=== PATIENT | female | born 1990 | race Caucasian/White ===

== ENCOUNTER 2019-01-10 09:11 | Inpatient (IN) | payer OTHER ==
[~2019-01-10] VITALS: Ht 157.5 cm; Wt 87.1 kg
[2019-01-10] MEDS ORDERED: LACTATED RINGER'S 1000 ML IV STA (09:55)
[2019-01-10 11:29] LABS: HEMATOCRIT 38.2 % (36.0-47.0); HEMOGLOBIN 11.9 g/dl (12.0-15.5); MEAN CORPUSCULAR HEMOGLOBIN 27.4 pg (27.0-33.0); MEAN CORPUSCULAR HGB CONC 31.2 g/dl (32.0-36.5); PLATELET COUNT, AUTOMATED 200 10^3/uL (150-450); RED BLOOD COUNT 4.34 10^6/uL (4.00-5.40); WHITE BLOOD COUNT 6.8 10^3/uL (4.0-10.0)
[2019-01-10] MEDS ORDERED: OXYTOCIN DRIP 30 UNITS in IV 1 EA IV SCH (12:15)
--- NOTE | 2019-01-10 13:48 | HPEPDOC ---
Obstetrical History & Physical General Date of Admission Jan 10, 2019 at 09:11 History of Present Illness Marylou is a 28yo with SIUP at 41w0d by lmp c/w 9wk u/s presenting today for IOL secondary to LTG. History is significant for prior section in March 2017 for arrest of dilation when undergoing IOL at 41wk. She strongly desires TOLAC and was counseled in the office regarding benefits/risks/alternatives. She confirms again today strong desire for TOLAC. Has occasional ctx, nothing strong or persistent. No LOF. Had a bit of vaginal spotting just this morning. Good movement. Chief Complaint: Induction of labor Information Provided By: Patient Care Care: Good Care Dating Final EDC: Jan 03, 2019 Final EDC by: LMP, 1st trimester (US) Antepartum Course Diagnos(e)s History of prior section, starting BMI 30 with 30 pound weight gain. Height (inches): 62 Pre- weight (lbs.): 164 Admission Weight (lbs.): 194 Change in Weight (lbs.): 30 Past Medical History Past Obstetrical History : Past Obstetrical History: Multigravida (03/2017 PLTCS for arrest of dilation when undergoing IOL at 41w1d, 8lb9oz) Complications: No FORESTRY WORKERS History: No pertinent history Past Medical History Medical History History of benign thyroid nodule, starting BMI 30 Surgical History: section, Other (knee surgery) Family History Significant Family History: No pertinent family hx Social History Marital Status: Family situation: Spouse/partner home Psychosocial History: No pertinent psych hx * Smoker: non-smoker Alcohol: Denies Drugs: denies Imunizations Tdap status: current Influenza Status: current Allergies Coded Allergies: Sulfa (Sulfonamide Antibiotics) (Verified Allergy, Mild, RASH, 01/10/19) ibuprofen (Verified Allergy, Mild, FACE SWELLING, 01/10/19) Physical Examination Physical Examination GENERAL: Alert and oriented times three. ABDOMEN: Gravid and non-tender to touch. FETUS: Is vertex (VTX) by sterile vaginal examination (SVE) EXTREMITIES: No edema of BLE Laboratory Data 24H LABS Laboratory Tests 2 01/10/19 10:49: Nucleated Red Blood Cells % (auto) 0.0, Syphilis Serology NONREACTIVE, Hepatitis B Surface Antigen (Rapid) NEGATIVEL CBC/BMP Laboratory Tests 01/10/19 10:49 Pertinent Laboratoy Data Blood Type: B+ RBC Antibody Screen: Negative HIV: Negative Hepatitis B: Negative Hepatitis C: Unknown Rapid Plasma Reagin: Nonreactive Rubella: Immune Varicella: Immune Chlamydia/Gonorrhea: Negative Group B Streptococcus: Negative Glucose Tolerance Test: 113 Anatomy Ultrasound Ultrasound Date: Jan 12, 2019 Placenta Location: Posterior Normal Anatomy: Yes Placenta Previa: No Steroid Therapy Steroid Therapy: No Vaginal Examination Dilation: 1cm Effacement: 50% Station: -3 Cervical Consistency: Medium Cervical Position: Middle Presentation: Cephalic presentation Assessment Heart Rate (FHR): 130 Variability: Moderate Accelerations: Positive Decelerations: None Tocometer Frequency: irregular, greater than 10 min/apart Strength: palpated as mild Assessment/Plan Assessment Marylou is a 28yo with SIUP at 41w0d by lmp c/w 9wk u/s presenting today for IOL secondary to LTG. History is significant for prior section in March 2017 for arrest of dilation when undergoing IOL at 41wk. She strongly desires TOLAC and was counseled in the office regarding benefits/r isks/alternatives. She confirms again today strong desire for TOLAC. Vitals wnl, benign exam. SCE /high. Cat I FHRT, rare ctx. Cephalic by SCE. GBS negative. Portillo cervical bulb placed and filled with 40cc NS. Plan Admit and orient. Hospice Consultant and consent. Diet: clear liquids Group B Streptococcus (GBS) negative Labs and intravenous (IV) per unit protocol. Counseled on portillo bulb, Pitocin and induction of labor (IOL). Will titrate pitocin per protocol up to 6mu until portillo bulb falls out, then continue to titrate up per protocol Lactated Ringers (LR): Bolus 1000 mL, then at 125 mL/hr. Candidate for epidural as desired Safe to proceed MD Daniel Hurst Katrina D MD Jan 10, 2019 13:48
[2019-01-10] MEDS ORDERED: PNV1TAB6 PO (15:27)
[2019-01-10] MEDS ORDERED: TUMS500C PO (15:27)
[2019-01-10 19:30] VITALS: BP 120/77
[2019-01-10 20:22] VITALS: BP 115/62
[2019-01-10 21:33] VITALS: BP 132/69
[2019-01-10 22:33] VITALS: BP 130/80
[2019-01-10] MEDS ORDERED: PROMETHAZINE INJ 25 MG/ML VIAL (J2550) IV ONE (22:45)
[2019-01-10] MEDS ORDERED: BUTORPHANOL 2 MG/ML INJ (J0595) IV PRN (22:45)
[2019-01-10 23:15] VITALS: BP 120/74
[2019-01-10 23:46] VITALS: BP 82/44
--- NOTE | 2019-01-10 23:50 | IPNPDOC ---
Text Note Date of Service The patient was seen on 01/10/19. NOTE Intrapartum Note Patient doing well, portillo bulb fell out at 2230. Pitocin is at 6mu and she requested IV pain medication, so given 2mg IV stadol with 25mg IV phenergan with good pain relief. Vitals wnl, afebrile Cat I-II FHRT with +accels, -decels, min-mod abhay [place]: ctx q2-5min Plan for SCE in an hour or so. Safe to proceed Dr. Sveta Sanchez MD VS,Kirsten, I+O VSKirsten, I+O Laboratory Tests 01/10/19 10:49 Vital Signs Date Time Temp Pulse Resp B/P (MAP) Pulse Ox O2 Delivery O2 Flow Rate FiO2 01/10/19 23:13 18 Sveta Sanchez MD Jan 10, 2019 23:50
[2019-01-11] VITALS (30 sets, daily range): BP systolic 84–135; BP diastolic 46–93
[2019-01-11] MEDS: LR 1,000 ML IV SCH ×4 (01:35→22:01)
[2019-01-11] MEDS ORDERED: FENTANYL 2MCG/ML ROPIVACAINE 0.2% IN 0.9% NACL 100ML IVBAG As Ordered ONE (04:26)
[2019-01-11] MEDS ORDERED: FENTANYL/ROPIVACAINE/NACL BAG 100 ML EPIDURAL SCH (07:00)
[2019-01-11] MEDS ORDERED: EPIDURAL/PCA KEYS XX PRN (07:00)
[2019-01-11] MEDS ORDERED: ONDANSETRON 4MG/2ML VIAL (J2405) IV PRN ×3 (07:00→13:30)
[2019-01-11] MEDS ORDERED: NALOXONE INJ 0.4 MG/1 ML VIAL (J2310) IV PRN ×3 (07:00→13:04)
[2019-01-11] MEDS ORDERED: ePHEDrine SULFATE 25 MG/5 ML(5MG/ML) SYRINGE IV PRN (07:00)
[2019-01-11] MEDS ORDERED: REFRIGERATOR IV KEYS XX PRN (07:00)
[2019-01-11] MEDS ORDERED: EPIDURAL COMMENT XX SCH (07:00)
[2019-01-11] MEDS ORDERED: diphenhydrAMINE INJ 50MG/ML VIAL (J1200) IV PRN ×2 (07:00→13:04)
--- NOTE | 2019-01-11 09:38 | IPNPDOC ---
Text Note Date of Service The patient was seen on 01/11/19. NOTE Accepting care of Ms. Knutson this morning. She's a 28 yo at 41+1 weeks gestation who was admitted for an IOL for late term . Her history is notable for a prior c section for arrest of dilation at 7cm after undergoing an IOL. She strongly desired a TOLAC for this delivery. Her induction process was started with a portillo bulb and low dose pitocin. Her portillo bulb was expelled spontaneously late last night. She was checked at 0545 and was found to be 6/90/-2. She SROMed, clear fluid, at ~0715 this AM. She is comfortable with an epidural in place. FHR has been Cat I with moderate variability and early decels. Pitocin is currently at 7mU. Chaperoned by L&D RN Cervix: 6/90/-2. Forebag of clear fluid ruptured during exam. No real change since last exam. Will continue to titrate pitocin to effect. Patient still strongly desires TOLAC. Will recheck in 2-4 hours or sooner as needed. All patient questions answered. Josh Smith DO VSKirsten, I+O VS, Kirsten, I+O Laboratory Tests 01/10/19 10:49 Vital Signs Date Time Temp Pulse Resp B/P (MAP) Pulse Ox O2 Delivery O2 Flow Rate FiO2 01/11/19 08:45 84 18 102/61 (75) 01/11/19 07:44 98.0 I&O- Last 24 Hours up to 6 AM 01/11/19 05:59 Intake Total 927 ml Output Total 2200 ml Balance -1273 ml JOSH SMITH DO Jan 11, 2019 09:38
[2019-01-11] MEDS ORDERED: BICITRA 30ML SOLN UDC As Ordered ONE (11:21)
[2019-01-11] MEDS ORDERED: AZITHROMYCIN INJ 500MG VIAL (J0456) As Ordered ONE (11:22)
[2019-01-11] MEDS ORDERED: ceFAZolin 2 GM/D5W 50 ML IV BAG (J0690 PER 500MG) As Ordered ONE (11:22)
[2019-01-11] MEDS ORDERED: ceFAZolin SOD 2 GM in IV 1 EA IV ONE (11:30)
[2019-01-11] MEDS ORDERED: BICITRA 30ML SOLN UDC PO ONE (11:30)
[2019-01-11] MEDS ORDERED: AZITHROMYCIN INJ 500 MG, VIAL MATE ADAPTER 1 EACH in D5W 250 ML IV ONE (11:30)
[2019-01-11] MEDS ORDERED: OXYTOCIN INJ 10 UNITS/ML VIAL (J2590) As Ordered ONE (11:35)
[2019-01-11] MEDS ORDERED: MORPHINE PRES-FREE INJ 10 MG/10 ML VIAL (J2274) As Ordered ONE (11:36)
[2019-01-11] MEDS ORDERED: LIDOCAINE 2% W/EPIN INJ 20ML **PRES FREE As Ordered ONE (11:36)
--- NOTE | 2019-01-11 11:42 | IPNPDOC ---
Text Note Date of Service The patient was seen on 01/11/19. NOTE Presented to room for assessment. Ms. Knutson reports feeling more pressure. Cervix: unchanged at 6/90/-2. head still quite high. FHR tracing: Cat II with sporadic variable decels, but moderate variability and overall reassuring. I discussed my concern with Ms. 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 However, because status is overall reassuring, I offered her to labor another 2 hours for repeat examination to assess for progress in dilation and descent. I also offered her section now. After discussion with her , Ms. Knutson desires to proceed with section now. Will proceed with section now with indication being arrest of dilation. We discussed all risks of surgery to include, but not limited to, bleeding requiring blood transfusion, risk of infection, risk of injury to bowel, bladder, or other structures which could require additional surgery, risk of injury to baby, and even risk of and/or maternal . Ms. Knutson verbalized understanding of these risks and elected to proceed. Ancef and azithromycin for surgical prophylaxis. Will move to the OR when team ready. All patient and questions answered to apparent satisfaction. Josh Villalba DO VS,Kirsten, I+O VS, Kirsten, I+O Vital Signs Date Time Temp Pulse Resp B/P (MAP) Pulse Ox O2 Delivery O2 Flow Rate FiO2 01/11/19 10:53 99.1 89 108/52 (70) 01/11/19 10:22 18 I&O- Last 24 Hours up to 6 AM 01/11/19 06:00 Intake Total 927 ml Output Total 2200 ml Balance -1273 ml JOSH VILLALBA DO Jan 11, 2019 11:42
[2019-01-11] MEDS ORDERED: PHENYLephrine HCL 500 MCG/5 ML (100MCG/ML) SYRINGE (J2370) As Ordered ONE (12:17)
[2019-01-11] MEDS ORDERED: ONDANSETRON 4MG/2ML VIAL (J2405) As Ordered ONE (12:17)
[2019-01-11] MEDS ORDERED: MEPERIDINE 50 MG/ML 1ML VIAL (J2175) As Ordered ONE (12:21)
[2019-01-11] MEDS ORDERED: NALBUPHINE HCL 10 MG/ML AMP (J2300) IV PRN (13:04)
[2019-01-11] MEDS ORDERED: METOCLOPRAMIDE INJ 10MG/2ML VIAL (J2765) IV PRN ×2 (13:04→13:30)
[2019-01-11] MEDS ORDERED: OXYTOCIN DRIP 30 UNITS in IV 1 EA IV SCH (13:07)
[2019-01-11] MEDS ORDERED: PROMETHAZINE 25 MG TAB PO PRN (13:15)
[2019-01-11] MEDS ORDERED: oxyCODONE 5MG TAB PO PRN ×2 (13:15)
[2019-01-11] MEDS ORDERED: MEASLES,MUMPS,RUBELLA VACCINE INJ (MMR-II) (90707) SC SCH (13:15)
[2019-01-11] MEDS ORDERED: DOCUSATE SODIUM 100 MG CAP PO PRN (13:15)
[2019-01-11] MEDS ORDERED: RHOGAM 300 MCG (1500 IU) INJ (J2790) IM SCH (13:15)
[2019-01-11] MEDS ORDERED: OXYTOCIN 30 UNITS IN 0.9% NaCl 500ML IV BAG (J2590) As Ordered ONE (13:18)
[2019-01-11] MEDS ORDERED: fentaNYL 100 MCG/2 ML INJECTION (J3010) IV PRN (13:30)
[2019-01-11] MEDS ORDERED: PERCOCET 5MG/325MG TAB PO PRN (13:30)
[2019-01-11] MEDS ORDERED: LR 1,000 ML IV SCH (13:30)
[2019-01-11] MEDS ORDERED: ACETAMINOPHEN *IV* 1,000 MG in IV 1 EA IV ONE (14:00)
[2019-01-11] MEDS: SIMETHICONE 80 MG CHEW TAB PO PRN (18:23)
[2019-01-11] MEDS: ACETAMINOPHEN 500 MG TAB PO SCH (22:00)
[2019-01-12] MEDS: LR 1,000 ML IV SCH ×2 (05:07→19:29)
[2019-01-12] MEDS: ACETAMINOPHEN 500 MG TAB PO SCH ×2 (05:57→14:11)
[2019-01-12] MEDS: SIMETHICONE 80 MG CHEW TAB PO PRN ×2 (05:59→12:38)
[2019-01-12 06:00] VITALS: BP 117/72
[2019-01-12 06:59] LABS: MEAN CORPUSCULAR HEMOGLOBIN 27.7 pg (27.0-33.0); MEAN CORPUSCULAR HGB CONC 31.4 g/dl (32.0-36.5); MEAN CORPUSCULAR VOLUME 88.2 fl (80.0-96.0); PLATELET COUNT, AUTOMATED 195 10^3/uL (150-450); RED BLOOD COUNT 3.97 10^6/uL (4.00-5.40); WHITE BLOOD COUNT 21.1 10^3/uL (4.0-10.0)
--- NOTE | 2019-01-12 08:36 | IPNPDOC ---
Progress Note Date of Service: Jan 12, 2019 Progress Note Ms. Knutson is a 28 yo G2 now P2 who is POD#1 s/p uncomplicated RLTCS for arrest of dilation after a failed TOLAC. No acute events overnight. Ms. Knutson feels well this morning. She had some gas pain last night and is nervous because she had a post op ileus after her first c section. Pain has improved this morning and now it is minimal. She has been ambulating, but not much. She had flatus yesterday but not a whole lot. She is tolerating a regular diet and denies any nausea or vomiting. Vitals - VSS, HR 90s-100s, normotenisive, afebrile General - AAOX3, sitting in chair, pleasant and conversant, NAD Abdomen - Soft, non distended. Bandage removed from incision. Incision clean/dry/intact. Steri strips in place. No tenderness to palpation. Extremities - No edema UO - Excellent, portillo catheter just removed Labs: Pre op H/H ~ --> post op this AM ~ Ms. Knutson is doing well and is making an appropriate / postoperative recovery. Understandably she is nervous because of a post op ileus after her first c section. Will gently advance diet, encourage aggressive ambulation and IS use, and continue simethicone. Abdominal binder ordered as well. Follow up DTV this AM. Continue routine post op / care. Anticipate discharge home tomorrow. All patient questions answered. Josh Smith DO VS, I&O, 24H, Fishbone Vital Signs/I&O Vital Signs Date Time Temp Pulse Resp B/P (MAP) Pulse Ox O2 Delivery O2 Flow Rate FiO2 01/12/19 06:00 97.6 107 18 117/72 (87) 93 Room Air I&O- Last 24 Hours up to 6 AM 01/12/19 06:00 Intake Total 2500 ml Output Total 5650 ml Balance -3150 ml Laboratory Data 24H LABS Laboratory Tests 2 01/12/19 06:45: Nucleated Red Blood Cells % (auto) 0.0 CBC/BMP Laboratory Tests 01/12/19 06:45 JOSH SMITH DO Jan 12, 2019 08:36
[2019-01-12] MEDS: PANTOPRAZOLE 40MG INJ (PROTONIX) (C9113) IV SCH (09:00)
[2019-01-12] MEDS ORDERED: PRENATAL VITAMINS CHEWABLE TABLET PO SCH (09:00)
[2019-01-12 10:00] VITALS: BP 111/63
--- NOTE | 2019-01-12 13:12 | IPNPDOC ---
Text Note Date of Service The patient was seen on 01/12/19. NOTE Jessa was seen this afternoon as she was reporting increased abdominal di stension and discomfort. She denies any nausea or vomiting but has only been doing clear liquids and no significant solid food. Vitals - VSS, afebrile, normotensive, non tachycardic On exam her abdomen is distended as compared to this morning. Bowel sounds are present, but sluggish and hypoactive. She has appropriate tenderness to palpation. She has passed flatus twice yesterday post surgery, but none today, and she is concerned she is developing an ileus again. And her abdomen is certainly more distended. Will maintain on clears for now and prescribe reglan and a single dose of mag ci trate. If there is no improvement, will consider abdominal flate plate and NG tube decompression if warranted. All patient questions answered. Josh Smith DO VS,Kirsten, I+O VS, Fishbone, I+O Laboratory Tests 01/12/19 06:45 Vital Signs Date Time Temp Pulse Resp B/P (MAP) Pulse Ox O2 Delivery O2 Flow Rate FiO2 01/12/19 10:00 97.1 92 18 111/63 (79) 95 Room Air I&O- Last 24 Hours up to 6 AM 01/12/19 06:00 Intake Total 2500 ml Output Total 5650 ml Balance -3150 ml JOSH SMITH DO Jan 12, 2019 13:12
[2019-01-12] MEDS ORDERED: KETOROLAC 30 MG/ML VIAL (J1885) IV PRN (13:15)
[2019-01-12 14:00] VITALS: BP 117/72
[2019-01-12] MEDS ORDERED: METOCLOPRAMIDE 10 MG TAB PO SCH (14:00)
[2019-01-12] MEDS ORDERED: MAGNESIUM CITRATE 300 ML BTL PO ONE (14:00)
[2019-01-12 18:00] VITALS: BP 114/53
--- NOTE | 2019-01-12 18:46 | REPVR ---
PROCEDURE INFORMATION: Exam: CT Abdomen And Pelvis Without Contrast Exam date and time: 01/12/2019 6:00 PM Age: 28 years old Clinical history: Abdominal pain; Generalized; Prior surgery; Surgery date: Post-operative (0-2 days); Surgery type: today; Patient HX: PT states HX of ileus after her first ; Additional info: Post c/s distention. Please assess for colonic pseudo obstr TECHNIQUE: Imaging protocol: Computed tomography of the abdomen and pelvis without contrast. Radiation optimization: All CT scans at this facility use at least one of these dose optimization techniques: automated exposure control; mA and/or kV adjustment per patient size (includes targeted exams where dose is matched to clinical indication); or iterative reconstruction. COMPARISON: No relevant prior studies available. FINDINGS: Lungs: Bilateral lower lobe atelectasis, worse on the left. Liver: Unremarkable. No mass. Gallbladder and bile ducts: Normal. No calcified stones. No ductal dilation. Pancreas: Unremarkable. No ductal dilation. Spleen: Unremarkable. No splenomegaly. Adrenals: Normal. No mass. Kidneys and ureters: Unremarkable. No stones. No hydronephrosis. Stomach and bowel: The ascending and transverse colon are severely distended and contain fluid levels. There is an abrupt caliber transition at the splenic flexure. The descending and sigmoid colon are relatively decompressed and contain small amount of air and fecal matter. No mechanical obstruction is identified. The findings are consistent with colonic pseudo-obstruction. There are mildly distended loops of small bowel containing fluid levels. Appendix: No evidence of appendicitis. Intraperitoneal space: No free air. No significant fluid collection. Vasculature: Unremarkable. No abdominal aortic aneurysm. Lymph nodes: No enlarged lymph nodes. Bladder: Small amount of air within urinary bladder, likely secondary to urinary bladder catheterization. Correlate clinically. Reproductive: Postsurgical changes from recent section, are present within the lower abdomen and pelvis. The uterus is enlarged, consistent with state. There are multiple small gas collections within the endometrial cavity, likely postprocedural. Retained products are not excluded by this examination. Bones/joints: There are bilateral L5 chronic pars defects with grade 1 anterolisthesis of L5. Soft tissues: There is air within the subcutaneous tissues of the right side of the back and there is air within right para spinal muscles as well as a small amount of epidural air at the level of L2. IMPRESSION: 1. Findings consistent with colonic pseudo-obstruction. There is severe distention of ascending and transverse colon containing fluid levels with abrupt caliber transition at the splenic flexure without evidence of mechanical obstruction. 2. Postsurgical changes from recent . 3. Changes within the lower back soft tissues and spinal canal from recent epidural anesthesia. Electronically signed by: Reynaldo Michael On 01/12/2019 18:46:13 PM
[2019-01-12] MEDS ORDERED: PROMETHAZINE INJ 25 MG/ML VIAL (J2550) IV PRN (19:45)
--- NOTE | 2019-01-12 20:23 | IPNPDOC ---
Text Note Date of Service The patient was seen on 01/12/19. NOTE I re evaluated Marylou this evening. Her pain is at a 0 after administration of toradol, though she has continued abdominal distension. VSS, afebrile, normotensive, non tachycardic. I obtained a CT abd/pel to assess for ileus vs obstruction vs colonic pseudoobstruction. CT results were consistent with colonic pseudoobstruction. She has a dilated ascending and transverse colon with a sharp transition point at the splenic flexure. Sigmoid and descending colon are relatively decompressed. There is mild dilation of the small bowel. There is no evidence of mechanical obstruction or surgical injury, abscess, or hematoma. I spoke with the reading radiologist, Dr. Michael, who agreed imaging was classic for colonic pseudoobstruction. He measured the most dilated part of the colon at ~8.5cm. There is no evidence of perforation. I then spoke with the hospice care transitions coordinator gen era surgeon Dr. Devi, and explained to him the clinical situation. Recommendation is for conservative management at this time as she has no signs/symptoms of peritonitis and her colon is not at significant risk for perforation unless it has a diameter of >12cm. Will make NPO, place NG tube for decompression, and start maintenance IV fluids. Strict monitoring of Is/Os will be very important so that her fluid deficits may be replaced accurately. Will check daily electrolytes and replace PRN. Will remove all opiates from medication regimen and any other agents that can affect GI motility. Will continue with scheduled toradol (no allergic reaction) and PRN phenergan. After discussing with Dr. Devi may also consider fleet enemas. Will monitor clinical status closely with serial abdominal exams and consider serial KUBs to monitor changes in colonic diameter. If there is concer n for impending perforation or peritonitis, conservative management may no longer be feasible. If improvement is slow, will re engage general surgery for further recommendations. 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 [place]'s syndrome is rare overall, but has been described frequently in post c section patients. I suspect this is what happened after Marylou's first c section, and she would likely be susceptible to it happening again after future c sections. All their questions were answered to their apparent satisfaction. Jeff Smith DO VS,Kirsten, I+O VS, Kirsten, I+O Laboratory Tests 01/12/19 06:45 Vital Signs Date Time Temp Pulse Resp B/P (MAP) Pulse Ox O2 Delivery O2 Flow Rate FiO2 01/12/19 18:00 96.9 75 18 114/53 (73) 95 Room Air I&O- Last 24 Hours up to 6 AM 01/12/19 06:00 Intake Total 2500 ml Output Total 5650 ml Balance -3150 ml JOSH SMITH DO Jan 12, 2019 20:23
[2019-01-12 20:39] LABS: BLOOD UREA NITROGEN 8 MG/DL (7-18); CALCIUM LEVEL 8.6 MG/DL (8.5-10.1); CARBON DIOXIDE LEVEL 25 MEQ/L (21-32); CHLORIDE LEVEL 108 MEQ/L (98-107); CREATININE FOR GFR 0.66 MG/DL (0.55-1.30); GLOMERULAR FILTRATION RATE > 60.0 (>60); GLUCOSE, FASTING 73 MG/DL (70-100); POTASSIUM SERUM 4.1 MEQ/L (3.5-5.1); SODIUM LEVEL 139 MEQ/L (136-145)
[2019-01-12] MEDS: KETOROLAC 30 MG/ML VIAL (J1885) IV SCH (21:18)
[2019-01-12] MEDS ORDERED: LORazepam 2 MG/ML VIAL (J2060) IV ONE (21:30)
[2019-01-12 22:00] VITALS: BP 101/57
--- NOTE | 2019-01-12 22:11 | REPVR ---
PROCEDURE INFORMATION: Exam: XR Chest, 1 View Exam date and time: 01/12/2019 9:32 PM Age: 28 years old Clinical history: Nasogastric tube placement. History of a recent section. TECHNIQUE: Imaging protocol: XR of the chest Views: 1 view. COMPARISON: CT ABD PELVIS W/O CONTRAST 01/12/2019 5:56:08 PM FINDINGS: Tubes, catheters and devices: There is a nasogastric tube coursing below the diaphragm and terminating in the body of the stomach. Lungs: There is bibasilar atelectasis. No lung consolidation or pulmonary edema is noted. Pleural space: Unremarkable. No pleural effusion or pneumothorax is identified. Heart/Mediastinum: Unremarkable. No cardiomegaly. Bones/joints: Unremarkable. IMPRESSION: Nasogastric tube in appropriate position in the body of the stomach. Electronically signed by: Kelvin Don On 01/12/2019 22:10:14 PM
[2019-01-13 02:00] VITALS: BP 108/68
[2019-01-13] MEDS: LR 1,000 ML IV SCH ×3 (03:58→19:04)
[2019-01-13] MEDS: KETOROLAC 30 MG/ML VIAL (J1885) IV SCH ×4 (03:59→21:04)
[2019-01-13 06:00] VITALS: BP 107/69
[2019-01-13 06:46] LABS: HEMATOCRIT 31.6 % (36.0-47.0); HEMOGLOBIN 9.8 g/dl (12.0-15.5); MEAN CORPUSCULAR HEMOGLOBIN 27.5 pg (27.0-33.0); MEAN CORPUSCULAR VOLUME 88.8 fl (80.0-96.0); PLATELET COUNT, AUTOMATED 204 10^3/uL (150-450); RED BLOOD COUNT 3.56 10^6/uL (4.00-5.40); WHITE BLOOD COUNT 16.8 10^3/uL (4.0-10.0)
[2019-01-13 06:58] LABS: BLOOD UREA NITROGEN 15 MG/DL (7-18); CREATININE FOR GFR 0.64 MG/DL (0.55-1.30); GLOMERULAR FILTRATION RATE > 60.0 (>60); GLUCOSE, FASTING 66 MG/DL (70-100)
[2019-01-13 06:59] LABS: CARBON DIOXIDE LEVEL 25 MEQ/L (21-32); CHLORIDE LEVEL 109 MEQ/L (98-107); PHOSPHORUS LEVEL 3.6 MG/DL (2.5-4.9); POTASSIUM SERUM 3.9 MEQ/L (3.5-5.1); SODIUM LEVEL 141 MEQ/L (136-145)
[2019-01-13] MEDS ORDERED: NS 1,000 ML IV ONE (08:00)
[2019-01-13] MEDS: PANTOPRAZOLE 40MG INJ (PROTONIX) (C9113) IV SCH (08:23)
--- NOTE | 2019-01-13 08:36 | IPNPDOC ---
Progress Note Date of Service: Jan 13, 2019 Progress Note Ms. Knutson is a 28 yo G2 now P2 who is POD#2 s/p uncomplicated RLTCS for arrest of dilation after a failed TOLAC. Yesterday she had persistent abdominal distension and underwent a CT scan which revealed [place]'s Syndrome (acute colonic pseudoobstruction). An NG tube was placed overnight and she was made NPO. Ms. Knutson feels improved this morning. Only discomfort is from the NG tube. She has passed much more gas this AM and even had an episode of diarrhea. She denies any nausea or vomiting. Incision pain has been controlled. Vitals - VSS, HR 70s, normotensive, afebrile General - AAOX3, sitting in chair, NG tube in place. Not hooked up at my time of exam Abdomen - Soft, distension still present but slightly improved from yesterday. Bowel sounds still sluggish and hypoactive but improved. Incision well appearing and steri strips intact. Minimal tenderness to palpation. Extremities - No edema UO - appropriate NG output - Minimal, ~50ml over last 10 hours Maintenance fluids remain at 100ml/hr Labs: H/H ~12/19 Cr - ~0.6 Mag 2.0 Phos - 3.6 K - 3.9 Ms. Knutson is improved from yesterday. She has passed more gas this AM and had a bowel movement. She is still distended but there is improvement. Output from NG tube has been minimal. Electrolytes are stable. Will replace fluid lost from NG tube and continue maintenance fluids. May consider repeat imaging today to assess for improvement in colonic diameter. If she continues to improve, we may be able to remove the NG tube later this evening. Otherwise she is doing well postoperatively. All patient and questions answered. Josh Villalba, DO VS, I&O, 24H, [place] Vital Signs/I&O Vital Signs Date Time Temp Pulse Resp B/P (MAP) Pulse Ox O2 Delivery O2 Flow Rate FiO2 01/13/19 06:00 97.8 73 16 107/69 (82) 96 Room Air I&O- Last 24 Hours up to 6 AM 01/13/19 06:00 Output Total 1000 ml Balance -1000 ml Laboratory Data 24H LABS Laboratory Tests 2 01/12/19 20:06: Anion Gap 6L, Glomerular Filtration Rate > 60.0, Lactic Acid Level 0.8, Calcium Level 8.6 01/13/19 06:25: Anion Gap 7L, Glomerular Filtration Rate > 60.0, Calcium Level 8.0L, Nucleated Red Blood Cells % (auto) 0.0, Phosphorus Level 3.6, Magnesium Level 2.0 CBC/BMP Laboratory Tests 01/12/19 20:06 01/13/19 06:25 JOSH VILLALBA DO Jan 13, 2019 08:36
[2019-01-13 10:00] VITALS: BP 116/61
[2019-01-13 14:00] VITALS: BP 115/57
[2019-01-13 18:00] VITALS: BP 117/62
--- NOTE | 2019-01-13 18:21 | REPVR ---
PROCEDURE INFORMATION: Exam: CT Abdomen And Pelvis Without Contrast Exam date and time: 01/13/2019 5:59 PM Age: 28 years old Clinical history: Condition or disease; Intestinal condition; Obstruction; Additional info: Repeat ctcesariansectioncheck [id number] read TECHNIQUE: Imaging protocol: Computed tomography of the abdomen and pelvis without contrast. Radiation optimization: All CT scans at this facility use at least one of these dose optimization techniques: automated exposure control; mA and/or kV adjustment per patient size (includes targeted exams where dose is matched to clinical indication); or iterative reconstruction. COMPARISON: CT ABD PELVIS W/O CONTRAST 01/12/2019 5:56 PM FINDINGS: Tubes, catheters and devices: NG tube demonstrated in the stomach. Lungs: Bibasilar atelectasis. Small bilateral pleural effusions and pleural thickening. Liver: Normal. No mass. Gallbladder and bile ducts: Normal. No calcified stones. No ductal dilation. Pancreas: Normal. No ductal dilation. Spleen: Normal. No splenomegaly. Adrenals: Normal. No mass. Kidneys and ureters: Normal. No hydronephrosis. Stomach and bowel: Previously demonstrated gross colonic dilatation involving the right and transverse colon is decompressed in the interval between CT examinations. No gross colonic mass demonstrated. Appendix: No evidence of appendicitis. Intraperitoneal space: Unremarkable. No free air. No significant fluid collection. Vasculature: Unremarkable. No abdominal aortic aneurysm. Lymph nodes: Unremarkable. No enlarged lymph nodes. Bladder: Thickened bladder wall with air in the bladder may be postprocedural. Clinical correlation to exclude cystitis suggested. Reproductive: Enlarged uterus and postsurgical changes in the uterus including its uterine air consistent with recent section. Bones/joints: Redemonstration of bilateral pars defects at L5 with a slight anterolisthesis of L5 and S1. Diffusely bulging annulus at L5-S1. Soft tissues: Redemonstration of air in the right paraspinal soft tissues although epidural air no longer demonstrated. Finding likely postprocedural. Postsurgical changes demonstrated in the anterior abdominal wall. Herniation of fat into the low anterior abdominal wall musculature. IMPRESSION: 1. Redemonstration of bilateral pars defects at L5 with a slight anterolisthesis of L5 and S1. Diffusely bulging annulus at L5-S1. 2. Redemonstration of air in the right paraspinal soft tissues although epidural air no longer demonstrated. Finding consistent with recent epidural anesthesia. 3. Enlarged uterus and postsurgical changes in the uterus including its uterine air consistent with recent section. 4. Previously demonstrated gross colonic dilatation involving the right and transverse colon is decompressed in the interval between CT examinations. No gross colonic mass demonstrated. 5. Thickened bladder wall with intravesicular gas. Clinical correlation to exclude infection suggested. Electronically signed by: Elijah Mancini On 01/13/2019 18:20:51 PM
[2019-01-13 22:00] VITALS: BP 110/72
[2019-01-13] MEDS: DOCUSATE SODIUM 100 MG CAP PO SCH (23:40)
[2019-01-13] MEDS ORDERED: SIMETHICONE 80 MG CHEW TAB PO PRN (23:45)
[2019-01-14 02:50] VITALS: BP 118/77
[2019-01-14] MEDS: KETOROLAC 30 MG/ML VIAL (J1885) IV SCH (02:51)
[2019-01-14 06:00] VITALS: BP 106/69
[2019-01-14 07:05] LABS: HEMATOCRIT 30.1 % (36.0-47.0); HEMOGLOBIN 9.5 g/dl (12.0-15.5); MEAN CORPUSCULAR HEMOGLOBIN 27.7 pg (27.0-33.0); MEAN CORPUSCULAR HGB CONC 31.6 g/dl (32.0-36.5); MEAN CORPUSCULAR VOLUME 87.8 fl (80.0-96.0); PLATELET COUNT, AUTOMATED 247 10^3/uL (150-450); RED BLOOD COUNT 3.43 10^6/uL (4.00-5.40)
[2019-01-14] MEDS ORDERED: KETOROLAC 30 MG/ML VIAL (J1885) IV PRN (07:30)
--- NOTE | 2019-01-14 07:32 | IPNPDOC ---
Progress Note Date of Service: Jan 14, 2019 Progress Note Ms. Knutson is a 28 yo G2 now P2 who is POD#3 s/p uncomplicated RLTCS for arrest of dilation after a failed TOLAC. 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 An NG tube was placed and she was made NPO. She did well yesterday and a repeat CT scan revealed resolution of prior distended colon. She had her NG tube removed and has been tolerating a clear liquid diet overnight. Ms. Knutson feels continued improvement. Her abdominal distension is much imp roved. She is passing gas and had a bowel movement last night. She denies any fevers/chills, n/v. She is ambulating without issues and has minimal lochia. Vitals - VSS, HR 70s, normotensive, afebrile General - AAOX3, sitting in chair, pleasant and conversant Abdomen - Soft, distension much improved as compared to yesterday. Bowel sounds present and improved. Incision clean/dry/intact. Steri strips in place. Minimal tenderness to palpation. Extremities - No edema UO - appropriate Labs from 14Jan2019 AM: H/H 9.5/30.1 WBC - 9.0 BMP pending Ms. Knutson is much improved this AM and has been doing well since NG tube was removed yesterday evening. She continues to pass gas and has no n/v. Distension and bowel sounds have improved objectively on exam. Plan will be to gently transition to regular diet today and monitor clinical status closely. If she continues to do well, may discharge to home this afternoon/evening. All patient questions answered. Josh Villalba, DO VS, I&O, 24H, Kirsten Vital Signs/I&O Vital Signs Date Time Temp Pulse Resp B/P (MAP) Pulse Ox O2 Delivery O2 Flow Rate FiO2 01/14/19 06:00 97.3 73 16 106/69 (81) 01/13/19 18:00 97 01/13/19 06:00 Room Air I&O- Last 24 Hours up to 6 AM 01/14/19 06:00 Intake Total 2000 ml Output Total 935 ml Balance 1065 ml Laboratory Data 24H LABS Laboratory Tests 2 01/14/19 06:49: Nucleated Red Blood Cells % (auto) 0.0 CBC/BMP Laboratory Tests 01/14/19 06:49 JOSH VILLALBA DO Jan 14, 2019 07:32
[2019-01-14 07:33] LABS: BLOOD UREA NITROGEN 19 MG/DL (7-18); CALCIUM LEVEL 7.7 MG/DL (8.5-10.1); CARBON DIOXIDE LEVEL 25 MEQ/L (21-32); CHLORIDE LEVEL 109 MEQ/L (98-107); CREATININE FOR GFR 0.71 MG/DL (0.55-1.30); GLOMERULAR FILTRATION RATE > 60.0 (>60); GLUCOSE, FASTING 67 MG/DL (70-100); MAGNESIUM LEVEL 2.1 MG/DL (1.8-2.4); SODIUM LEVEL 140 MEQ/L (136-145)
[2019-01-14] MEDS: PANTOPRAZOLE 40MG INJ (PROTONIX) (C9113) IV SCH (07:58)
[2019-01-14] MEDS: DOCUSATE SODIUM 100 MG CAP PO SCH (08:00)
[2019-01-14] MEDS: ACETAMINOPHEN 500 MG TAB PO SCH ×2 (08:00→14:59)
--- NOTE | 2019-01-14 08:30 | RO ---
DATE OF PROCEDURE: 01/11/2019 PREOPERATIVE DIAGNOSIS: Arrest of dilation and failed trial of labor after (TOLAC). POSTOPERATIVE DIAGNOSIS: Arrest of dilation and failed trial of labor after (TOLAC). PROCEDURE: Repeat low transverse section. SURGEON: Edwin Smith DO FIGHTING VEHICLE SYSTEMS MAINTAINER: Dr. Timothy Marshall, whose assistance with exposure, retraction and visualization was essential to the completion of the case. ANESTHESIA: Epidural. FLUIDS: 1100 mL of Lactated Ringer's. URINE OUTPUT: 100 mL via Salguero catheter. ESTIMATED BLOOD LOSS: 800 mL. ANTIBIOTICS: 2 grams of Ancef and 500 mg of azithromycin. COMPLICATIONS: None. OPERATIVE FINDINGS: Viable male infant deliver in right occiput transverse (ROT) position without difficulty. scores eight and nine. weight 4010 grams or 8 pounds 13 ounces. There was a tight single nuchal cord and a small extension of the hysterotomy on the right side. DETAILED PROCEDURE DESCRIPTION: The risks, benefits, indications and alternatives of the procedure were reviewed with the patient and informed consent was obtained. The patient was taken to the operating room where epidural anesthesia was found to be adequate. She was then prepped and draped in the usual sterile fashion in the dorsal supine position with a leftward tilt. A surgical time out was then performed and the patient's identity and planned procedure were verified with the operative team. A Pfannenstiel skin incision was then made with a scalpel and carried through to the underlying layer of fascia using the Bovie electrocautery. The fascia was incised in the midline and the incision was extended laterally with the Altamirano scissors. The superior aspect of the fascial incision was grasped with Berry clamps, elevated and the underlying rectus muscles were dissected off both bluntly and with a scalpel. Attention was then turned to the inferior aspect of this incision, which in a similar fashion was grasped, tented up with the Berry clamps and the rectus muscles were dissected off with Altamirano scissors. The rectus muscles were then at the midline. The peritoneum was identified and entered sharply with Metzenbaum scissors after tenting up with hemostats. The peritoneal incision was then extended horizontally and superiorly with good visualization of the bladder. A bladder blade was then inserted into the abdomen. The vesicouterine peritoneum was then identified and entered sharply with a scalpel. This incision was then extended laterally and a bladder flap was created digitally. Next, the lower uterine segment was incised in a transverse fashion with a scalpel. The uterine incision was then extended manually. Clear fluid was noted upon entry into the uterus. The infant was found to be in cephalic ROT position. The infant's head was then delivered atraumatically through the hysterotomy without difficulty followed by the remainder of the body. The nose and mouth were suctioned with a bulb syringe and the cord was doubly clamped and cut. The infant was handed off to the awaiting pediatricians. The placenta was then removed manually. The uterus was then exteriorized and cleared of all clots and debris. The uterine incision was repaired with #0 Monocryl suture in a running locked fashion. A right sided small extension of the hysterotomy was noted and was repaired with a figure-of-8 suture of #0 Monocryl as well as multiple figure-of-8 sutures of #3-0 Vicryl. Inspection revealed excellent hemostasis. The remainder of the hysterotomy was then closed without difficulty with #0 Monocryl suture. An #0 Vicryl layer was then used to imbricate the middle portion of the hysterotomy with multiple figure-of-8 sutures. Inspection revealed excellent hemostasis. The posterior cul-de-sac was then irrigated. The uterus was then returned to the abdomen and the hysterotomy was noted to be hemostatic. There was noted to be scant oozing from the bladder flap and Stephanie was applied to this area. The pericolic gutters were then inspected, irrigated and cleared of all clots and debris. The bladder blade was removed from the abdomen. The peritoneum was closed with a running layer of #3-0 Vicryl suture. The fascia was then closed with #0 Vicryl suture in a running fashion. The subcutaneous fat was closed with #3-0 Vicryl suture in a running fashion. The skin was closed with #4-0 Monocryl in a subcuticular fashion. The incision was then dressed with Steri-Strips and a pressure dressing was applied. At the completion of the case, a bimanual exam was performed which revealed good uterine tone and minimal vaginal bleeding. The patient tolerated the procedure well. Sponge, lap, instrument and needle counts were correct times three. The patient was taken to the recovery room in stable condition. HECTOR
--- NOTE | 2019-01-14 12:01 | IPN ---
DATE: 01/13/2019 28-year-old, 2, para 1, admitted at 41 weeks for induction of labor having a desire for a trial of labor after (TOLAC). She had a repeat lower section for arrest of dilatation. Delivered a live male weighing 8 pounds 13 ounces, score of 8 and 9 at one and five minutes, respectively. Her admitting hemoglobin 11.9, hematocrit 38.2 and platelets were 200. day #1, hemoglobin of 9.8, hematocrit 31.6 and platelets were 204. 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 So, this lady had a nasogastric (NG) tube placed over a period of 24 hours. Had a chest x-ray, which showed the nasogastric tube was in place. She also had other appropriate catheters and tubes as well in order to make sure that we were in the appropriate position. She had a repeat of her CT 24 hours later and at that time indicated that there was reduction in her gross colonic dilatation of the stomach and the bowel. She in the interim had been passing gas, had a small bowel movement and seemed to be recovering much more rapidly than her previous episode of same. At this point, the NG tube was removed and later was allowed to have clear fluids. She also had some non-sensation of voiding. She did void 200 mL and bladder scanning revealed she had 49 mL of urine left in the bladder, which was appropriate. Her vital signs have all been stable. She has been afebrile throughout. Most recent vital signs her blood pressure 117/62, respirations 18, pulse 72, temperature is 98.6. In reviewing her chemistry there was no significant changes outside of the fact that her blood urea nitrogen (BUN) had up to 15 but her anion gap was 7 which was low. Calcium was low. Glucose was low at 66. Our plan of care is to allow her continuous fluids, advance the diet, saline lock the IV and hopefully monitor her over the next 24 hours for the progressive improvement. We will order some Colace for her bowels, stool softeners as required. The patient and expressed understanding. 40 minute discussion. All questions were answered.
[2019-01-14] MEDS ORDERED: ACET-683 PO (13:59)
[2019-01-14] MEDS ORDERED: SIME80TA PO (13:59)
--- NOTE | 2019-01-14 14:03 | DS.PDOC ---
Discharge Summary General Date of Admission Jan 10, 2019 at 09:11 Date of Discharge Jan 14, 2019 Discharge Summary HOSPITAL COURSE: Ms. Knutson is a 28 yo G2 now P2 who underwent an uncomplicated RLTCS on 11Jan2019 for arrest of dilation after a failed TOLAC after being admitted for an IOL on for late term gestation. 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 This was diagnosed on CT scan after she developed persistent abdominal distension. The case was discussed with General surgery. She required NG decompression from late 12Jan2019 until late 13Jan2019 and was managed conservatively. Ultimately her distension improved significantly and repeat CT scan of her abdomen demonstrated resolution of her enlarged colon. on 14Jan2019 she had minimal distension, active bowel sounds, was passing gas, and even had a bowel movement. She strongly desired to go home on 14Jan2019. Her course was otherwise unremarkable. On her day of discharge (14Jan2019) she met all appropriate discharge criteria. She was ambulating, voiding, tolerating a regular diet, had minimal lochia, passing gas, and her pain was well controlled with PO pain medications. DISCHARGE MEDICATIONS: Please see below. ALLERGIES: Please see below. PHYSICAL EXAMINATION ON DISCHARGE: VITAL SIGNS: Please see below. GENERAL: AAOX3, sitting up in bed, NAD CARDIOVASCULAR EXAMINATION: RRR ABDOMINAL EXAMINATION: Fundus firm at U-2. Incision well appearing and clean/dry/intact. Steri strips in place. Minimal tenderness to palpation. Distension improved and bowel sounds present. EXTREMITIES: No edema PSYCHIATRIC EXAMINATION: Affect appropriate LABORATORY DATA: Please see below. ACTIVITY: Pelvic rest for 6 weeks. No heavy lifting or strenuous activity for 6 weeks. DIET: Regular DISCHARGE PLAN: Discharge home DISPOSITION: Discharge on 13Jan2019 DISCHARGE INSTRUCTIONS: 1. Pelvic rest 2. No heavy lifting or extremely strenuous activity for 6 weeks. 3. Gently advance diet to bland foods. 4. Drink plenty of water and take stool softeners as needed. ITEMS TO FOLLOWUP ON ON OUTPATIENT: 1. Incision check in 2 weeks at the [facility] office. DISCHARGE CONDITION: Stable TIME SPENT ON DISCHARGE: Greater than 20 minutes. Josh Villalba, Vital Signs/I&Os Vital Signs Date Time Temp Pulse Resp B/P (MAP) Pulse Ox O2 Delivery O2 Flow Rate FiO2 01/14/19 06:00 97.3 73 16 106/69 (81) 01/13/19 18:00 97 01/13/19 06:00 Room Air I&O- Last 24 Hours up to 6 AM 01/14/19 06:00 Intake Total 2000 ml Output Total 935 ml Balance 1065 ml Laboratory Data Labs 24H Laboratory Tests 2 01/14/19 06:49: Nucleated Red Blood Cells % (auto) 0.0, Anion Gap 6L, Glomerular Filtration Rate > 60.0, Calcium Level 7.7L, Magnesium Level 2.1 CBC/BMP Laboratory Tests 01/14/19 06:49 Discharge Medications Scheduled Acetaminophen (Acetaminophen) 500 Mg Tablet, 1,000 MG PO Q8H Vit,Calc76/Iron/Folic (Pnv 29-1 Tablet) 1 Each Tablet, 1 TAB PO DAILY, (Reported) Scheduled PRN Calcium Carbonate (Tums) 200 Mg Tab.chew, 2 TAB PO QID PRN for HEARTBURN, (Reported) Simethicone (Simethicone) 80 Mg Tab.chew, 80 MG PO Q6HP PRN for GAS PAIN Allergies Coded Allergies: ibuprofen (Verified Allergy, Severe, FACE SWELLING, 01/11/19) Sulfa (Sulfonamide Antibiotics) (Verified Allergy, Mild, RASH, 01/10/19) JOSH VILLALBA DO Jan 14, 2019 14:03
== END 2019-01-14 15:20 | disposition home or self-care (01) | DRG 773 ==
LOC: M LDI 09:11 → M OBS 01-11 15:30
PROVIDERS: ADMIT Obstetrics & Gynecology; ATTEND Obstetrics & Gynecology
PROC: 3E033VJ Introduction of Other Hormone into Peripheral Vein, Percutaneous Approach (ICD-10-PCS; 2019-01-10)
PROC: 10D00Z1 Extraction of Products of Conception, Low, Open Approach (ICD-10-PCS; principal; 2019-01-11 11:21)
DX: O48.0 Post-term pregnancy (principal); O99.62 Diseases of the digestive system complicating childbirth; O34.211 Maternal care for low transverse scar from previous cesarean delivery; Z3A.41 41 weeks gestation of pregnancy; O69.1XX0 Labor and delivery complicated by cord around neck, with compression, not applicable or unspecified; O62.0 Primary inadequate contractions; O66.41 Failed attempted vaginal birth after previous cesarean delivery; Z37.0 Single live birth; Z88.2 Allergy status to sulfonamides; Z88.6 Allergy status to analgesic agent

== ENCOUNTER → 2020-04-08 | Outpatient (CLI) | payer OTHER ==
[~2020-04-08] MED LIST: ACET-683 PO; PNV1TAB6 PO; SIME80CH5 PO; TUMS500C PO
--- NOTE | 2020-04-08 09:31 | REP ---
INDICATION: R BREAST LUMP. [age] old patient with longstanding lump in the right breast 10 o'clock position x5 years. Patient reports that there is a chance she may be . Accordingly, we opted for ultrasound over mammography at this time. COMPARISON: None. TECHNIQUE: Targeted right breast sonography is performed. FINDINGS: Focused right breast sonography in the region the palpable lump 10 o'clock position right breast demonstrates heterogeneous fibroglandular background echotexture. No cyst is seen. No mass, acoustic shadowing or architectural distortion is observed. IMPRESSION: BI-RADS category 1-findings. Clinical follow-up is advised. This patient's estimated Tyrer-Cuzick lifetime risk assessment for breast cancer is 12.0%. <Electronically signed by Erick Coley > 04/08/20 0999
== END ==
LOC: M WHC 08:45
PROVIDERS: ATTEND Family Medicine
DX: R92.8 Other abnormal and inconclusive findings on diagnostic imaging of breast (principal)